=== PATIENT | female | born 1990 | race American Indian/Alaskan Native ===

== ENCOUNTER 2020-09-24 22:11 | Outpatient (CLI) | payer OTHER ==
[2020-09-24] MEDS ORDERED: LACTATED RINGERS 500 ML IV ONE (23:35)
[2020-09-25 00:01] LABS: Bilirubin,Urine NEG (Negative); Blood,Urine NEG (Negative); Color,Urine Yellow (Yellow); Protein,Urine <15 mg/dL mg/dL (Negative); Urobilinogen,Urine < 2.0 mg/dL (<2.0)
[2020-09-25 00:03] LABS: Amphetamine Screen,Urine PRESUMPTIVE NEGATIVE; Benzodiazepines Screen,Urine PRESUMPTIVE NEGATIVE; Cannabinoid Screen,Urine PRESUMPTIVE NEGATIVE; Cocaine Screen,Urine PRESUMPTIVE NEGATIVE; Methadone Screen,Urine PRESUMPTIVE NEGATIVE; Opiate Screen,Urine PRESUMPTIVE NEGATIVE
[2020-09-25] MEDS ORDERED: TERBUTALINE 1 MG/1 ML INJ SUB-Q ONE (01:15)
[2020-09-25 01:39] VITALS: BP 118/68
--- NOTE | 2020-09-25 01:44 | Ultrasound Report ---
OB Ultrasound Biophysical profile HISTORY: wellbeing. TECHNIQUE: Grayscale and color imaging performed. COMPARISON: None FINDINGS: There is a single viable intrauterine gestation with cephalic presentation. Placenta is see n anteriorly. Heart rate is 149 bpm. Estimated gestational age by ultrasound is 32 weeks and 4 days w ith an estimated delivery date of 11/16/2020. Estimated weight is 2132 g and MARGARETH is 13.1 cm. On biophysical profile, the fetus received a score of 2 out of 2 for breathing, movement, posture/ton e, and MARGARETH. Total score was 8 out of 8. IMPRESSION: 1. Single viable intrauterine gestation as above. 2. Normal BPP. Signer Name: Ellis Zepeda MD Signed: 09/25/2020 1:39 AM Workstation Name: [id number]
== END 2020-09-25 03:20 | disposition home or self-care (01) ==
LOC: TRG 22:11 → APU 22:51 → TRG 09-25 03:20
PROVIDERS: ATTEND Obstetrics & Gynecology
DX: O21.2 Late vomiting of pregnancy (principal); O36.8130 Decreased fetal movements, third trimester, not applicable or unspecified; Z3A.31 31 weeks gestation of pregnancy
CPT/HCPCS: 59025; 76805; 76810; 76815; 76816; 76819; 80307; 81001; 96360; 96365; 96372